=== PATIENT | male | born 1935 | race Caucasian/White ===

== ENCOUNTER → 2018-06-16 | Outpatient (CLI) | payer MEDICARE, OTHER ==
[~2018-06-16] MED LIST: ACHD5005 PO; AGM875T PO; ASP81TEC PO; BARIUM SUSPENSION 2.1% (VANILLA SILQ) 450 ML PO ONE; CATHETER FLUSH 10 ML SYR IV PRN; CIPRO 500 MG PO; GEMF600T PO; GEMF600T3 PO; HYOS0.1216 PO; INSU100V13 IJ; INSU100V6 SQ; IOHEXOL 350 MG/ML 100 ML (OMNIPAQUE 350) VIAL IV ONE; LACT1CAP39 PO; LANTUS SC; LEVSIN 0.125 MG PO; LISI20TA PO; MTF500T PO; NITR100C3 PO; NS 100 ML (IVPB) BAG IV ONE; OXYC1TAB95 PO; PHEN200T27 PO; PHENAZOPYRIDINE 200 MG PO; RECEIVED CONTRAST (Hold Metformin) IV SCH; RIFA300C39 PO; SILO8CAP PO; SIMV20TA3 PO; SMV20T PO; WRF10T PO; ZOLP10TA5 PO
--- NOTE | 2018-06-16 12:33 | Diagnostic Imaging Report ---
PROCEDURE: CT abdomen and pelvis with contrast. TECHNIQUE: Multiple contiguous axial images were obtained through the abdomen and pelvis after administration of intravenous contrast. INDICATION: Prostate carcinoma. COMPARISON: Correlation is made with prior CT from 10/07/2012. FINDINGS: The lung bases demonstrate a 13 mm noncalcified nodule in the posterior right lower lobe, not present on prior CT from 2013. The remainder of the lung bases are clear. No discrete liver mass is identified. The gallbladder is unremarkable. No biliary ductal dilatation is seen. The pancreas and spleen are unremarkable. No adrenal mass is identified. Right kidney again demonstrates a probable cyst extending posteriorly from the right lower pole. This has increased in size since the prior CT, now measuring 2.4 cm transverse compared with 1.5 cm. Left renal atrophy is again noted. There is hyperdensity identified in the left kidney and proximal left ureter suggestive of a staghorn calculus. Contrast is less likely accounting for the hyperdensity. Study is somewhat limited without precontrast imaging. The aorta and iliac vessels are heavily calcified but nonaneurysmal. Small and large bowel loops are normal in caliber. No obstruction is seen. There is diverticulosis of the descending colon and sigmoid but no evidence of acute diverticulitis. Bladder is unremarkable. Prostate is enlarged. No definite abdominal or pelvic lymphadenopathy is seen. Bony structures are nonacute. IMPRESSION: 1. 13 mm right lower lobe pulmonary nodule, new since CT from 2012. Small metastatic nodule cannot be entirely excluded. This is likely too small to percutaneously biopsy. Consideration to performance of the PET scan is recommended. 2. Left renal atrophy and probable left staghorn calculus. 3. Uncomplicated diverticulosis. Dictated by: Dictated on workstation # [id number]
--- NOTE | 2018-06-16 15:56 | Diagnostic Imaging Report ---
INDICATION: Prostate carcinoma. TECHNIQUE: Patient was administered 25.7 mCi technetium 99m MDP intravenously and whole body imaging was performed after a three-hour delay. COMPARISON: No prior studies are available for comparison. FINDINGS: There is normal uptake of activity by the axial and appendicular skeleton. There is uptake by the kidneys with excretion into the urinary bladder. Left kidney is small. Photopenia over the right knee is noted, consistent with right knee arthroplasty. There are mild degenerative changes of the medial and lateral compartment of the left knee. Occasional small foci of uptake in the midthoracic spine and upper lumbar spine are noted which are likely on a degenerative basis. No foci are seen to suggest osseous metastatic disease. IMPRESSION: No scintigraphic evidence of osseous metastatic disease. Dictated by: Dictated on workstation # [id number]
== END ==
LOC: CARD 11:15
PROVIDERS: ATTEND Urology
DX: C61 Malignant neoplasm of prostate (principal); R91.1 Solitary pulmonary nodule
CPT/HCPCS: 74177; 78306

== ENCOUNTER → 2018-08-09 | Outpatient (CLI) | payer MEDICARE, OTHER ==
[~2018-08-09] MED LIST changes: -BARIUM SUSPENSION 2.1% (VANILLA SILQ) 450 ML PO ONE; -CATHETER FLUSH 10 ML SYR IV PRN; -IOHEXOL 350 MG/ML 100 ML (OMNIPAQUE 350) VIAL IV ONE; -NS 100 ML (IVPB) BAG IV ONE; -RECEIVED CONTRAST (Hold Metformin) IV SCH
--- NOTE | 2018-08-09 15:26 | Diagnostic Imaging Report ---
INDICATION: Lung nodule. TECHNIQUE: The serum blood glucose level at the time of injection was 111 mg/dL. The patient was administered 10.8 mCi of F-18 FDG intravenously in the left forearm, and PET imaging was performed from the top of the skull to mid thighs. Noncontrast CT was also performed for attenuation correction and anatomic correlation. COMPARISON: No prior PET studies are available for comparison. Comparison is made with recent conventional CT abdomen and pelvis from 06/16/2018. FINDINGS: There is symmetric activity throughout the brain. Normal physiologic activity within the neck is identified. No abnormal activity within the mediastinum or celestino is identified. No abnormal hypermetabolism is seen in the nodule in the posterior right lower lobe described on recent CT. No other suspicious abnormalities in the chest are identified. There is normal physiologic activity within the GI and tracts within the abdomen and pelvis. Osseous structures are unremarkable. IMPRESSION: Unremarkable PET scan. No hypermetabolism within the small nodule in the posterior right lower lobe is identified. Even so, continued close CT chest followup with repeat study in 3-6 months is recommended to show continued stability. Dictated by: Dictated on workstation # [id number]
== END ==
LOC: RAD 10:41
PROVIDERS: ATTEND Radiology Radiation Oncology
DX: R91.1 Solitary pulmonary nodule (principal)

== ENCOUNTER 2018-08-26 12:42 | Outpatient (CLI) | payer MEDICARE, OTHER ==
[~2018-08-26] VITALS: Ht 182.9 cm; Wt 108.0 kg
[2018-08-26 13:33] VITALS: BP 162/89
[2018-08-26] MEDS ORDERED: WARF-48 PO ×2 (13:48)
[2018-08-26] MEDS ORDERED: ZOLP5TAB7 PO (13:48)
[2018-08-26] MEDS ORDERED: SIMV20TA3 PO (13:48)
[2018-08-26] MEDS ORDERED: INSU100I29 SQ (13:48)
[2018-08-26] MEDS ORDERED: LISI-552 PO (13:48)
== END 2018-08-26 13:20 | disposition home or self-care (01) ==
LOC: PREOP 12:42
PROVIDERS: ATTEND Urology
DX: Z01.810 Encounter for preprocedural cardiovascular examination (principal); Z11.2 Encounter for screening for other bacterial diseases; C61 Malignant neoplasm of prostate
CPT/HCPCS: 87081; 93005

== ENCOUNTER 2018-08-31 06:21 | Day surgery (SDC) | payer MEDICARE, OTHER ==
[2018-08-31] VITALS (14 sets, daily range): BP systolic 141–192; BP diastolic 78–126
[~2018-08-31] VITALS: Ht 182.9 cm; Wt 108.0 kg
[~2018-08-31 06:21] MED LIST changes: +INSU100I29 SQ; +LISI-552 PO; +WARF-48 PO; +ZOLP5TAB7 PO
[2018-08-31] MEDS ORDERED: LACTATED RINGERS 1,000 ML IV PRN (06:22)
[2018-08-31] MEDS ORDERED: cefTRIAXone FOR IV USE 1,000 MG in WATER (STERILE) FOR INJECTION 10 ML IV ONE (06:30)
--- NOTE | 2018-08-31 07:10 | Progress Note-Pre Operative ---
Pre-Operative Progress Note H&P Reviewed The H&P was reviewed, patient examined and no changes noted. Date Seen by Provider: Aug 31, 2018 Time Seen by Provider: 07:10 Date H&P Reviewed: Aug 31, 2018 Time H&P Reviewed: 07:10 Pre-Operative Diagnosis: CA PROSTATE JEREMIAH DE LA ROSA MD Aug 31, 2018 07:10
--- NOTE | 2018-08-31 07:11 | Progress Note-Post Operative ---
Post-Operative Progess Note Surgeon (s)/Rock Crusher (s) Surgeon JEREMIAH DE LA ROSA MD Rock Crusher: [place] Pre-Operative Diagnosis CA PROSTATE Post-Operative Diagnosis SAME Procedure & Operative Findings Date of Procedure 08/31/18 Procedure Performed/Findings INSERTION OF FiUDICAL (GOLD) SEEDS AND SPACE OAR Anesthesia Type GENERAL Estimated Blood Loss Estimated blood loss (mL): NONE Specimens/Packing Specimens Removed NONE Packing: NONE JEREMIAH DE LA ROSA MD Aug 31, 2018 07:11
[2018-08-31] MEDS ORDERED: fentaNYL INJECTION 100 MCG/2 ML AMP ONE (07:12)
[2018-08-31] MEDS ORDERED: MIDAZOLAM 2 MG/2 ML (VERSED) VIAL ONE (07:12)
[2018-08-31] MEDS ORDERED: LIDOCAINE PF 2% 5 ML (XYLOCAINE) VIAL ONE (07:12)
[2018-08-31] MEDS ORDERED: cefTRIAXone 1,000 MG IV (ROCEPHIN) VIAL ONE (07:12)
[2018-08-31] MEDS ORDERED: proPOfol 200 MG/20 ML (DIPRIVAN) VIAL IV ONE (07:12)
[2018-08-31] MEDS ORDERED: ONDANSETRON 4 MG/2 ML (SDV) Z0FRAN ONE (07:12)
[2018-08-31] MEDS ORDERED: WATER (STERILE) FOR INJECTION 10 ML ONE (07:13)
--- NOTE | 2018-08-31 07:13 | Discharge Inst-Urology ---
Discharge Inst-Urology Discharge Medications New, Converted, or Re-newed RX: RX on Chart Patient Instructions/Follow Up Plan Patient to be seen by Dr Jolly prior to discharge. Please make appointment to been seen in office in 2 weeks. In 24 hrs, if no bleedings, may resume Coumadin and ASA Rest for 48 hrs Increase oral fluids for 48 hours and then as needed. Diet as tolerated. If questions or concerns contact your physician Or seek help at emergency department. JEREMIAH DE LA ROSA MD Aug 31, 2018 07:13
[2018-08-31 07:33] LABS: INR 1.1 (0.8-1.4)
[2018-08-31] MEDS ORDERED: SEVOFLURANE (ULTANE) 15 ML INHAL SOLN ONE ×4 (07:58→08:36)
--- NOTE | 2018-08-31 08:45 | NUR ---
DR. HUNTER NOTIFIED FOR A CARDIOLOGY CONSULT. PATIENT HAD A RUN OF V-TACH IN THE OR. PATIENT IS CURRENTLY IN THE RECOVERY ROOM. ORDERS RECEIVED.
[2018-08-31] MEDS ORDERED: MEPERIDINE (DEMEROL) INJ 50 MG/ML IVP ONE (09:00)
[2018-08-31] MEDS ORDERED: ONDANSETRON 4 MG/2 ML (SDV) Z0FRAN IVP PRN (09:00)
[2018-08-31] MEDS ORDERED: morphine INJ 10 MG/ML 1ML (SYR OR VIAL) IVP ONE (09:00)
[2018-08-31 09:19] LABS: HEMOGLOBIN 13.3 G/DL (13.3-17.7); MEAN PLATELET VOLUME 10.3 FL (7.4-10.4); WHITE BLOOD COUNT 8.1 10^3/uL (4.3-11.0)
[2018-08-31 09:32] LABS: ALANINE AMINOTRANSFERASE 11 U/L (0-55); ALBUMIN 3.5 GM/DL (3.2-4.5); ALKALINE PHOSPHATASE 51 U/L (40-136); BILIRUBIN,TOTAL 0.7 MG/DL (0.1-1.0); BUN/CREATININE RATIO 17; CALCIUM 9.4 MG/DL (8.5-10.1); CARBON DIOXIDE 26 MMOL/L (21-32); CHLORIDE 105 MMOL/L (98-107); CREATININE SERUM 1.15 MG/DL (0.60-1.30); GFR ESTIMATED > 60; GLUCOSE 117 MG/DL (70-105); MAGNESIUM 1.7 MG/DL (1.8-2.4); POTASSIUM 4.1 MMOL/L (3.6-5.0); SODIUM 138 MMOL/L (135-145); TOTAL PROTEIN 5.6 GM/DL (6.4-8.2)
--- NOTE | 2018-08-31 12:51 | Cardiology History & Physical ---
HPI-Cardiology Cardiology H&P Date of Admission 08-31-18 Primary Care Physician Dario Soria DO Attending Physician Wolf Jolly MD Consulting Physician HPI Mr. Escobedo is an 83 year old male who we have been called to see d/t a short run of WCT during implant of radiation seeds d/t prostate cancer. He is drowsy at the time of this examination. He reports Dr. Rose is his primary master sheet clerk. He denies any c/o CP, palpitations, syncope, near syncope or LE swelling. He states he has chronic a-fib and is on warfarin. Review of Systems-Cardiology Review of Systems Constitutional: No chills, No fever Eyes: No vision change Ears/Nose/Throat: No epistaxis, No recent hearing loss Respiratory: As described under HPI Cardiovascular: As described under HPI Gastrointestinal: No diarrhea, No nausea, No vomiting Genitourinary: No dysuria, No hematuria Musculoskeletal: no symptoms reported Skin: No rash, No ulcerations Psychiatric/Neurological: No seizure, No focal weakness, No syncope Hematologic: No bleeding abnormalities PHI-Osimpy-Yratvh Hx Patient Social History Alcohol Use: Denies Use Recreational Drug Use: No Smoking Status: Former Smoker 2nd Hand Smoke Exposure: No Recent Foreign Travel: No Recent Infectious Disease Expo: No Immunizations Up To Date Date of Pneumonia Vaccine: Apr 13, 2008 Date of Influenza Vaccine: Mar 28, 2018 Past Medical History PMH As described under Assessment. Allergies and Home Medications Allergies Coded Allergies: Sulfa (Sulfonamide Antibiotics) (Unverified Allergy, Unknown, HIVES, ) Thiazides (Verified Allergy, Unknown, HIVES, 08/26/18) ciprofloxacin (Verified Allergy, Unknown, HIVES, 08/26/18) doxycycline (Verified Allergy, Unknown, HIVES, 08/26/18) levofloxacin (Verified Allergy, Unknown, HIVES, 08/26/18) Home Medications Insulin Detemir 100 Unit/1 Ml Insuln.pen, 5 UNIT SQ HS, (Reported) Lisinopril 20 Mg Tablet, 20 MG PO DAILY, (Reported) Simvastatin 20 Mg Tablet, 20 MG PO HS, (Reported) Warfarin Sodium 5 Mg Tablet, 5 MG PO SuTuThSa, (Reported) Warfarin Sodium 5 Mg Tablet, 7.5 MG PO MoWeFr, (Reported) take 1 1/2 of 5mg tab Zolpidem Tartrate 5 Mg Tablet, 5 MG PO HS, (Reported) Patient Home Medication List Home Medication List Reviewed: Yes Physical Exam-Cardiology Physical Exam Vital Signs/I&O 08/31/18 08/31/18 09/01/18 09/01/18 22:00 23:00 00:00 00:00 Temp 97.9 Pulse 70 59 Resp 19 18 B/P (MAP) 172/102 (125) 152/78 (102) Pulse Ox 94 95 O2 Delivery Room Air Room Air Room Air 09/01/18 09/01/18 09/01/18 09/01/18 00:00 01:00 01:00 02:00 Pulse 70 55 55 57 Resp 15 26 20 B/P (MAP) 136/60 (85) 116/50 (72) 128/66 (86) Pulse Ox 91 91 89 O2 Delivery Room Air Room Air Room Air 09/01/18 09/01/18 09/01/18 09/01/18 03:00 04:00 04:56 07:00 Pulse 69 69 68 59 Resp 11 14 21 20 B/P (MAP) 110/61 (77) 131/58 (82) Pulse Ox 91 86 94 99 O2 Delivery Room Air Room Air Nasal Cannula Nasal Cannula O2 Flow Rate 2.00 2.00 09/01/18 09/01/18 09/01/18 09/01/18 07:09 08:00 08:00 09:00 Pulse 59 103 70 Resp 24 19 B/P (MAP) 165/101 (122) 166/101 (122) Pulse Ox 99 96 94 O2 Delivery Nasal Cannula Room Air Nasal Cannula O2 Flow Rate 2.00 2.00 09/01/18 09:00 O2 Delivery Room Air 08/31/18 23:59 Intake Total 550 ml Output Total 925 ml Balance -375 ml Capillary Refill : Constitutional: AAO x 3, well-developed, well-nourished HEENT: PERRL, hearing is well preserved, oral hygience is good Neck: No carotid bruit; carotid pulses are 2 + bilaterally Respiratory: No accessory muscle use, No respiratory distress; chest expansion is symmetric, chest is bilaterally symmetric, lungs clear to auscultation Cardiovascular: irregularly irregular; No JVD; S1 and S2 Gastrointestinal: audible bowel sounds Rectal: deferred Extremities: no lower extremity edema bilateral Neurologic/Psychiatric: grossly intact, power is 5/5 both on sides Skin: No rash, No ulcerations Data Review Labs Laboratory Tests 08/31/18 14:45: White Blood Count 10.1, Red Blood Count 4.69, Hemoglobin 14.5, Hematocrit 44, Mean Corpuscular Volume 94, Mean Corpuscular Hemoglobin 31, Mean Corpuscular Hemoglobin Concent 33, Red Cell Distribution Width 14.2, Platelet Count 132, Mean Platelet Volume 10.4, Prothrombin Time 13.7, INR Comment 1.1, Sodium Level 138, Potassium Level 4.2, Chloride Level 104, Carbon Dioxide Level 26, Anion Gap 8, Blood Urea Nitrogen 18, Creatinine 1.13, Estimat Glomerular Filtration Rate > 60, BUN/Creatinine Ratio 16, Glucose Level 100, Calcium Level 9.6, Magnesium Level 1.7L, Thyroid Stimulating Hormone (TSH) 0.84 08/31/18 18:51: Glucometer 190H 08/31/18 21:14: Glucometer 170H 09/01/18 03:10: White Blood Count 9.7, Red Blood Count 4.13L, Hemoglobin 13.1L, Hematocrit 39L, Mean Corpuscular Volume 94, Mean Corpuscular Hemoglobin 32, Mean Corpuscular Hemoglobin Concent 34, Red Cell Distribution Width 14.6H, Platelet Count 170, Mean Platelet Volume 10.1, Prothrombin Time 14.2, INR Comment 1.1, Sodium Level 139, Potassium Level 4.2, Chloride Level 106, Carbon Dioxide Level 23, Anion Gap 10, Blood Urea Nitrogen 20H, Creatinine 1.21, Estimat Glomerular Filtration Rate 57, BUN/Creatinine Ratio 17, Glucose Level 104, Calcium Level 8.9, Magnesium Level 1.7L, Neutrophils (%) (Auto) 62, Lymphocytes (%) (Auto) 23, Monocytes (%) (Auto) 10, Eosinophils (%) (Auto) 4, Basophils (%) (Auto) 1, Neutrophils # (Auto) 6.0, Lymphocytes # (Auto) 2.3, Monocytes # (Auto) 1.0, Eosinophils # (Auto) 0.4H, Basophils # (Auto) 0.1, Phosphorus Level 3.3 A/P-Cardiology Assessment/Admission Diagnosis Episode of WCT (6 beats) during radiation seed implant for prostate cancer on 08-31-18 H/O chronic a-fib OAC with warfarin Prostate cancer Admission Status: Observation Discussion and Recomendations Admit with tele Continue home medications including warfarin for stroke prophylaxis Echocardiogram to eval LVEF and structure Monitor lab Not suitable for BB d/t somewhat low HR - albeit asymptomatic Further recs will be based on his hospital course Consult medical services ROBINA LORD Aug 31, 2018 12:51
[2018-08-31 14:57] LABS: HEMOGLOBIN 14.5 G/DL (13.3-17.7); MEAN PLATELET VOLUME 10.4 FL (7.4-10.4); RED CELL DISTRIBUTION WIDTH 14.2 % (10.0-14.5); WHITE BLOOD COUNT 10.1 10^3/uL (4.3-11.0)
[2018-08-31 15:09] LABS: INR 1.1 (0.8-1.4); PROTHROMBIN TIME PATIENT 13.7 SEC (12.2-14.7)
[2018-08-31 15:15] LABS: BUN/CREATININE RATIO 16; CALCIUM 9.6 MG/DL (8.5-10.1); CARBON DIOXIDE 26 MMOL/L (21-32); CHLORIDE 104 MMOL/L (98-107); CREATININE SERUM 1.13 MG/DL (0.60-1.30); GFR ESTIMATED > 60; GLUCOSE 100 MG/DL (70-105); MAGNESIUM 1.7 MG/DL (1.8-2.4); POTASSIUM 4.2 MMOL/L (3.6-5.0); SODIUM 138 MMOL/L (135-145)
--- NOTE | 2018-08-31 19:06 | Consultation-Cardiology ---
HPI-Cardiology Cardiology Consultation: Date of Consultation 08/31/18 Time Seen by a Provider: 13:40 Date of Admission Attending Physician Justin Bower MD Admitting Physician Dario Soria DO Consulting Physician NAE HUNTER MD, MA, FACP, FACC, [facility] HPI: Chief Complaint: CC: Wide-complex tachy during urologic procedure today Mr. Escobedo is an 83 year old male who we have been called to see d/t a short run of WCT during implant of radiation seeds d/t prostate cancer. He is drowsy at the time of this examination. He reports Dr. Rose is his primary informatica developer. He denies any c/o CP, palpitations, syncope, near syncope or LE swelling. He states he has chronic a-fib and is on warfarin. Review of Systems-Cardiology Review of Systems Constitutional: No chills, No fever Eyes: No vision change Ears/Nose/Throat: No epistaxis, No recent hearing loss Respiratory: As described under HPI Cardiovascular: As described under HPI Gastrointestinal: No diarrhea, No nausea, No vomiting Genitourinary: No dysuria, No hematuria Musculoskeletal: no symptoms reported Skin: No rash, No ulcerations Psychiatric/Neurological: No seizure, No focal weakness, No syncope Hematologic: No bleeding abnormalities BYW-Wgoiqe-Gvnouu Hx Patient Social History Alcohol Use: Denies Use Recreational Drug Use: No Smoking Status: Former Smoker 2nd Hand Smoke Exposure: No Recent Foreign Travel: No Recent Infectious Disease Expo: No Immunizations Up To Date Date of Pneumonia Vaccine: Apr 13, 2008 Date of Influenza Vaccine: Mar 28, 2018 Past Medical History PMH As described under Assessment. Allergies and Home Medications Allergies Coded Allergies: Sulfa (Sulfonamide Antibiotics) (Unverified Allergy, Unknown, HIVES, ) Thiazides (Verified Allergy, Unknown, HIVES, 08/26/18) ciprofloxacin (Verified Allergy, Unknown, HIVES, 08/26/18) doxycycline (Verified Allergy, Unknown, HIVES, 08/26/18) levofloxacin (Verified Allergy, Unknown, HIVES, 08/26/18) Home Medications Insulin Detemir 100 Unit/1 Ml Insuln.pen, 5 UNIT SQ HS, (Reported) Lisinopril 20 Mg Tablet, 20 MG PO DAILY, (Reported) Simvastatin 20 Mg Tablet, 20 MG PO HS, (Reported) Warfarin Sodium 5 Mg Tablet, 5 MG PO SuTuThSa, (Reported) Warfarin Sodium 5 Mg Tablet, 7.5 MG PO MoWeFr, (Reported) take 1 1/2 of 5mg tab Zolpidem Tartrate 5 Mg Tablet, 5 MG PO HS, (Reported) Patient Home Medication List Home Medication List Reviewed: Yes Physical Exam-Cardiology Physical Exam Vital Signs/I&O 08/31/18 08/31/18 08/31/18 08/31/18 08:13 11:23 12:00 12:59 Temp 98.5 97.5 Pulse 56 52 56 52 Resp 12 18 B/P (MAP) 162/83 162/91 (114) Pulse Ox 96 O2 Delivery Room Air 08/31/18 08/31/18 08/31/18 08/31/18 13:00 14:00 15:00 16:00 Pulse 44 56 66 58 Resp 12 8 26 26 B/P (MAP) 151/86 (107) 163/91 (115) 141/126 (131) 143/88 (106) Pulse Ox 100 98 99 97 O2 Delivery Room Air Room Air Room Air Room Air 08/31/18 08/31/18 17:00 18:00 Pulse 49 67 Resp 22 11 B/P (MAP) 171/82 (111) 174/83 (113) Pulse Ox 99 96 O2 Delivery Room Air Room Air Capillary Refill : Constitutional: AAO x 3, well-developed, well-nourished HEENT: PERRL, hearing is well preserved, oral hygience is good Neck: No carotid bruit; carotid pulses are 2 + bilaterally Respiratory: No accessory muscle use, No respiratory distress; chest expansion is symmetric, chest is bilaterally symmetric, lungs clear to auscultation Cardiovascular: irregularly irregular; No JVD; S1 and S2 Gastrointestinal: audible bowel sounds Rectal: deferred Extremities: no lower extremity edema bilateral Neurologic/Psychiatric: grossly intact, power is 5/5 both on sides Skin: No rash, No ulcerations Data Review Labs Laboratory Tests 08/31/18 06:51: Glucometer 138H 08/31/18 07:00: Prothrombin Time 14.0, INR Comment 1.1 08/31/18 09:05: White Blood Count 8.1, Red Blood Count 4.31L, Hemoglobin 13.3, Hematocrit 40, Mean Corpuscular Volume 94, Mean Corpuscular Hemoglobin 31, Mean Corpuscular Hemoglobin Concent 33, Red Cell Distribution Width 14.0, Platelet Count 156, Mean Platelet Volume 10.3, Sodium Level 138, Potassium Level 4.1, Chloride Level 105, Carbon Dioxide Level 26, Anion Gap 7, Blood Urea Nitrogen 19H, Creatinine 1.15, Estimat Glomerular Filtration Rate > 60, BUN/Creatinine Ratio 17, Glucose Level 117H, Calcium Level 9.4, Corrected Calcium 9.8, Magnesium Level 1.7L, Total Bilirubin 0.7, Aspartate Amino Transf (AST/SGOT) 20, Alanine Aminotransferase (ALT/SGPT) 11, Alkaline Phosphatase 51, Troponin I < 0.028, Total Protein 5.6L, Albumin 3.5, Thyroid Stimulating Hormone (TSH) 1.20 08/31/18 14:45: Prothrombin Time 13.7, INR Comment 1.1, White Blood Count 10.1, Red Blood Count 4.69, Hemoglobin 14.5, Hematocrit 44, Mean Corpuscular Volume 94, Mean Corpuscular Hemoglobin 31, Mean Corpuscular Hemoglobin Concent 33, Red Cell Distribution Width 14.2, Platelet Count 132, Mean Platelet Volume 10.4, Sodium Level 138, Potassium Level 4.2, Chloride Level 104, Carbon Dioxide Level 26, Anion Gap 8, Blood Urea Nitrogen 18, Creatinine 1.13, Estimat Glomerular Filtration Rate > 60, BUN/Creatinine Ratio 16, Glucose Level 100, Calcium Level 9.6, Magnesium Level 1.7L, Thyroid Stimulating Hormone (TSH) 0.84 08/31/18 18:51: Glucometer 190H A/P-Cardiology Assessment/Admission Diagnosis Episode of WCT (6 beats) during radiation seed implant for prostate cancer on 08-31-18 H/O chronic a-fib OAC with warfarin Prostate cancer Discussion and Recomendations Admit with tele Continue home medications including warfarin for stroke prophylaxis Echocardiogram to eval LVEF and structure MPI to eval for cor ischemia Monitor lab Not suitable for BB d/t somewhat low HR - albeit asymptomatic Further recs will be based on his hospital course Consult medical services NAE HUNTER MD FACP FAC CCDS Aug 31, 2018 19:06
[2018-08-31] MEDS ORDERED: ENOXAPARIN 40 MG/0.4 ML (LOVENOX) SYR SC SCH (19:15)
[2018-08-31] MEDS ORDERED: ASPIRIN 81 MG CHEW (CHILDREN'S ASA) PO ONE (19:15)
[2018-08-31] MEDS ORDERED: inSUlin DETERMIR 1 UNIT/0.01 ML (LEVEMIR) CHARGE PER UNIT SQ SCH (21:00)
[2018-08-31] MEDS ORDERED: ZOLPIDEM 5 MG (AMBIEN) TAB PO SCH (21:00)
--- NOTE | 2018-08-31 21:04 | NUR ---
NOTIFIED DR DE LA ROSA OF MED ORDER FOR LOVENOX 40MG SQ. OKAYED BY DR DE LA ROSA TO GIVE LOVENOX AND RESTART HOME MEDS.
[2018-08-31] MEDS ORDERED: ACETAMINOPHEN 325 MG TABLET ONE (22:22)
[2018-08-31] MEDS ORDERED: ENOXAPARIN 40 MG/0.4 ML (LOVENOX) SYR ONE (22:22)
[2018-08-31] MEDS ORDERED: ACETAMINOPHEN 325 MG TABLET PO PRN (22:30)
--- NOTE | 2018-08-31 22:37 | NUR ---
PT STATED THAT HOME DOSE OF LEVEMIR INSULIN IS 25 UNITS SQ, NOT 5 UNITS PER MED REC.
[2018-08-31] MEDS ORDERED: inSUlin DETERMIR 1 UNIT/0.01 ML (LEVEMIR) CHARGE PER UNIT SQ ONE (22:52)
[2018-09-01] VITALS (9 sets, daily range): BP systolic 110–178; BP diastolic 50–110
[2018-09-01 04:02] LABS: BASOPHILS # (AUTO) 0.1 10^3/uL (0.0-0.1); BASOPHILS % (AUTO) 1 % (0-10); EOSINOPHILS # (AUTO) 0.4 10^3/uL (0.0-0.3); EOSINOPHILS % (AUTO) 4 % (0-10); HEMATOCRIT 39 % (40-54); HEMOGLOBIN 13.1 G/DL (13.3-17.7); LYMPHOCYTES # (AUTO) 2.3 X 10^3 (1.0-4.0); LYMPHOCYTES % (AUTO) 23 % (12-44); MEAN CORPUSCULAR HEMOGLOBIN 32 PG (25-34); MEAN CORPUSCULAR HGB CONC 34 G/DL (32-36); MEAN CORPUSCULAR VOLUME 94 FL (80-99); MEAN PLATELET VOLUME 10.1 FL (7.4-10.4); MONOCYTES % (AUTO) 10 % (0-12); NEUTROPHILS % (AUTO) 62 % (42-75); PLATELET COUNT 170 10^3/uL (130-400); RED CELL DISTRIBUTION WIDTH 14.6 % (10.0-14.5); WHITE BLOOD COUNT 9.7 10^3/uL (4.3-11.0)
[2018-09-01 04:13] LABS: INR 1.1 (0.8-1.4); PROTHROMBIN TIME PATIENT 14.2 SEC (12.2-14.7)
[2018-09-01 04:20] LABS: CALCIUM 8.9 MG/DL (8.5-10.1); CREATININE SERUM 1.21 MG/DL (0.60-1.30); MAGNESIUM 1.7 MG/DL (1.8-2.4); PHOSPHORUS 3.3 MG/DL (2.3-4.7); POTASSIUM 4.2 MMOL/L (3.6-5.0)
--- NOTE | 2018-09-01 07:48 | Anesthesia-General Post-Op ---
General Patient Condition Mental Status/LOC: Same as Preop Cardiovascular: Satisfactory Nausea/Vomiting: Absent Respiratory: Satisfactory Pain: Controlled Complications: Absent Post Op Complications Complications None Follow Up Care/Instructions Patient Instructions None needed. Anesthesia/Patient Condition Patient Condition Patient is doing well, no complaints, stable vital signs, no apparent adverse anesthesia problems. No complications reported per nursing. PERRY CONWAY CRNA Sep 01, 2018 07:48
[2018-09-01] MEDS ORDERED: ASPIRIN 81 MG CHEW (CHILDREN'S ASA) PO SCH (09:00)
[2018-09-01] MEDS ORDERED: lisINopril 20 MG (PRINIVIL) TABLET PO NR (09:45)
--- NOTE | 2018-09-01 09:51 | Progress Note-Cardiology ---
Cardiology SOAP Progress Note Subjective: Sitting up in bed. Wants to go home this morning. He does not want to have any testing done. He denies any c/o CP, palpitations, syncope or near syncope. He wants to f/u with Dr. Rose his primary director of financial planning. Objective: I&O/Vital Signs 09/01/18 09/01/18 09/01/18 09/01/18 07:00 07:09 08:00 08:00 Pulse 59 59 103 Resp 20 24 B/P (MAP) 165/101 (122) Pulse Ox 99 99 96 O2 Delivery Nasal Cannula Nasal Cannula Room Air O2 Flow Rate 2.00 2.00 09/01/18 09/01/18 09/01/18 09/01/18 09:00 09:00 10:00 11:00 Pulse 70 76 72 Resp 19 25 26 B/P (MAP) 166/101 (122) 178/110 (132) 137/88 (104) Pulse Ox 94 92 93 O2 Delivery Nasal Cannula Room Air Nasal Cannula Room Air O2 Flow Rate 2.00 2.00 09/01/18 00:00 Intake Total 550 ml Output Total 925 ml Balance -375 ml Weight (Pounds): 238 Weight (Ounces): 0.0 Weight (Calculated Kilograms): [id number] Constitutional: AAO x 3, well-developed, well-nourished Respiratory: No accessory muscle use, No respiratory distress; chest expansion is symmetric, chest is bilaterally symmetric, lungs clear to auscultation Cardiovascular: irregularly irregular; No JVD; S1 and S2 Gastrointestional: audible bowel sounds Extremities: no lower extremity edema bilateral Neurologic/Psychiatric: grossly intact, power is 5/5 both on sides Skin: No rash, No ulcerations Results/Procedures: Labs Laboratory Tests 08/31/18 18:51: Glucometer 190H 08/31/18 21:14: Glucometer 170H 09/01/18 03:10: White Blood Count 9.7, Red Blood Count 4.13L, Hemoglobin 13.1L, Hematocrit 39L, Mean Corpuscular Volume 94, Mean Corpuscular Hemoglobin 32, Mean Corpuscular Hemoglobin Concent 34, Red Cell Distribution Width 14.6H, Platelet Count 170, Mean Platelet Volume 10.1, Neutrophils (%) (Auto) 62, Lymphocytes (%) (Auto) 23 , Monocytes (%) (Auto) 10, Eosinophils (%) (Auto) 4, Basophils (%) (Auto) 1, Neutrophils # (Auto) 6.0, Lymphocytes # (Auto) 2.3, Monocytes # (Auto) 1.0, Eosinophils # (Auto) 0.4H, Basophils # (Auto) 0.1, Prothrombin Time 14.2, INR Comment 1.1, Sodium Level 139, Potassium Level 4.2, Chloride Level 106, Carbon Dioxide Level 23, Anion Gap 10, Blood Urea Nitrogen 20H, Creatinine 1.21, Estimat Glomerular Filtration Rate 57, BUN/Creatinine Ratio 17, Glucose Level 104, Calcium Level 8.9, Phosphorus Level 3.3, Magnesium Level 1.7L A/P: Assessment: Episode of WCT (6 beats) during radiation seed implant for prostate cancer on 08-31-18 H/O chronic a-fib Echocardiogram of 08-31-18 showed LVEF 50-55%. Grade I diastolic dysfunction. Mild TR. PASP 25 mmHg. OAC with warfarin Not suitable for beta-chente because of bradycardia at baseline Prostate cancer Plan: Continue home medication regimen He is not reporting any symptoms No further episodes of WCT He does not wish to have any testing done He wants to go home and f/u with Dr. Rose He understands the implications of decision. We have discussed at length. D/C home with out pt f/u with Dr. Rose Physician Assessment Physician Assessment Denies cp or palp or syncope. Wishes to go home Lungs: clear Cor: reg Ext: no c/c/e A&R * As documented in our note above that I updated (italics) and as noted below * He refuses to stay in the hosp for any further w/u (MPI was planned today) * States will f/u with Dr Rose, his director of financial planning, [place] * We have advised return to ER for any symptoms ROBINA LORD RECORD LIBRARIAN Sep 01, 2018 09:51 NAE HUNTER MD FACP FAC CCDS Sep 01, 2018 17:42
[2018-09-01] MEDS ORDERED: warFARin 5 MG (COUMADIN) TAB PO SCH (18:00)
[2018-09-01] MEDS ORDERED: ACETAMINOPHEN 325 MG TABLET PO SCH (21:00)
[2018-09-01] MEDS ORDERED: SIMvastatin 20 MG (ZOCOR) TAB PO SCH (21:00)
[2018-09-01] MEDS ORDERED: inSUlin DETERMIR 1 UNIT/0.01 ML (LEVEMIR) CHARGE PER UNIT SQ SCH (21:00)
[2018-09-02] MEDS ORDERED: lisINopril 20 MG (PRINIVIL) TABLET PO SCH (09:00)
[2018-09-02] MEDS ORDERED: warFARin 7.5 MG (COUMADIN) TAB PO SCH (18:00)
== END 2018-09-01 11:42 | disposition home or self-care (01) ==
LOC: SDC 06:21 → ICU 11:23 → SDC 09-01 11:42
PROVIDERS: ATTEND Urology
DX: C61 Malignant neoplasm of prostate (principal); I48.2 Chronic atrial fibrillation; I10 Essential (primary) hypertension; E78.5 Hyperlipidemia, unspecified; E11.9 Type 2 diabetes mellitus without complications; I25.10 Atherosclerotic heart disease of native coronary artery without angina pectoris; K21.9 Gastro-esophageal reflux disease without esophagitis; Z95.1 Presence of aortocoronary bypass graft; Z96.652 Presence of left artificial knee joint; Z88.2 Allergy status to sulfonamides; Z88.1 Allergy status to other antibiotic agents; Z79.01 Long term (current) use of anticoagulants; Z79.899 Other long term (current) drug therapy; Z86.73 Personal history of transient ischemic attack (TIA), and cerebral infarction without residual deficits
CPT/HCPCS: 36415; 80048; 80053; 82962; 83735; 84100; 84443; 84484; 85025; 85027; 85610; 93005; 93306

== ENCOUNTER → 2018-09-14 | Outpatient (CLI) | payer MEDICARE, OTHER ==
--- NOTE | 2018-09-14 17:02 | Diagnostic Imaging Report ---
PROCEDURE: MRI pelvis without contrast. TECHNIQUE: Multiplanar, multisequence MRI of the pelvis was performed without contrast. INDICATION: Prostate cancer. Planning MRI for radiation seed placement. COMPARISON: PET/CT from 08/09/2018. FINDINGS: The prostate is mildly enlarged measuring 5.3 x 4.0 x 4.7 cm (transverse x AP x craniocaudal). The central gland is hypertrophied and accounts for the prostate enlargement. In the inferior left zone of the central gland, there is a 1.5 x 1.4 cm nodule. No macroscopic invasion of the urinary bladder, seminal vesicles, or pelvic sidewall. No regional sclerotic lesions to indicate skeletal metastases. No lymphadenopathy within the pelvis. No free pelvic fluid. No hip effusion. SI joints are normal. IMPRESSION: 1. Prostatomegaly with asymmetric nodularity in the central zone of the left apex. Dictated by: Dictated on workstation # [id number]
== END ==
LOC: RAD 12:08
PROVIDERS: ATTEND Nurse Practitioner Family
DX: C61 Malignant neoplasm of prostate (principal)
CPT/HCPCS: 72195

== ENCOUNTER → 2018-11-01 | Outpatient (RCR) | payer MEDICARE, OTHER | END | disposition home or self-care (01) | LOC: ONC 08-03 15:10 | PROVIDERS: ATTEND Radiology Radiation Oncology | DX: Z51.0 Encounter for antineoplastic radiation therapy (principal); C61 Malignant neoplasm of prostate; I48.2 Chronic atrial fibrillation; I10 Essential (primary) hypertension; E78.5 Hyperlipidemia, unspecified; E11.9 Type 2 diabetes mellitus without complications; I25.10 Atherosclerotic heart disease of native coronary artery without angina pectoris; K21.9 Gastro-esophageal reflux disease without esophagitis; Z86.73 Personal history of transient ischemic attack (TIA), and cerebral infarction without residual deficits; Z95.1 Presence of aortocoronary bypass graft; Z96.652 Presence of left artificial knee joint; Z79.01 Long term (current) use of anticoagulants; Z79.899 Other long term (current) drug therapy | CPT/HCPCS: 72195; 77300; 77301; 77334; 77336; 77338; 77385; 99204 ==

== ENCOUNTER 2018-11-28 08:41 | Outpatient (RCR) | payer MEDICARE, OTHER | END 2019-01-31 | disposition home or self-care (01) | LOC: ONC 08:41 | PROVIDERS: ATTEND Radiology Radiation Oncology | DX: Z51.0 Encounter for antineoplastic radiation therapy (principal); C61 Malignant neoplasm of prostate; I48.2 Chronic atrial fibrillation; I10 Essential (primary) hypertension; E78.5 Hyperlipidemia, unspecified; E11.9 Type 2 diabetes mellitus without complications; I25.10 Atherosclerotic heart disease of native coronary artery without angina pectoris; K21.9 Gastro-esophageal reflux disease without esophagitis; Z86.73 Personal history of transient ischemic attack (TIA), and cerebral infarction without residual deficits; Z95.1 Presence of aortocoronary bypass graft; Z96.652 Presence of left artificial knee joint; Z79.01 Long term (current) use of anticoagulants; Z79.899 Other long term (current) drug therapy | CPT/HCPCS: 77336; 77385 ==

== ENCOUNTER → 2018-12-02 | Outpatient (CLI) | payer MEDICARE, OTHER ==
--- NOTE | 2018-12-02 08:41 | Diagnostic Imaging Report ---
PROCEDURE: CT urinary tract, rule out kidney stone. TECHNIQUE: Multiple contiguous axial images were obtained through the abdomen and pelvis without the use of intravenous contrast. Auto Exposure Controls were utilized during the CT exam to meet ALARA standards for radiation dose reduction. INDICATION: Right flank pain. History of kidney stones. COMPARISON: CT dated 06/16/[address] PET dated 08/09/2018. FINDINGS: Included portions of the lung bases show partially visualized 1.4 x 1.3 cm nodule within subpleural margins of the right lower lobe (image 2, series 2). CT abdomen: There is colonic diverticulosis, but no CT evidence of acute diverticulitis. Normal appendix is identified. Small bowel loops are nondistended. Evaluation of kidneys demonstrates significant asymmetric atrophy of the left kidney. Staghorn calculus is also identified on the left. Multiple hypodense left renal cysts are also noted. Appearance is consistent with findings seen on 06/16/2018. Evaluation of the right kidney demonstrates punctate nonobstructive calculus within the superior pole. Multiple hypodense right renal cysts are also noted. No ureteral calculi are identified on the right. Additionally, there is no hydroureteronephrosis or other evidence of obstruction. The adrenal glands, spleen, pancreas, and liver have an unremarkable noncontrast CT appearance. There is no loculated fluid collection, free fluid, nor free air within the abdomen. No abnormal mesenteric or retroperitoneal adenopathy is seen. There is diffuse calcified aortic and arterial atherosclerosis. Focal ectasia of the infrarenal abdominal aorta measures 2.8 x 2.9 cm (image 63, series 2). Osseous structures show no acute abnormalities. CT pelvis: Urinary bladder is unopacified. No calculi are seen within urinary bladder. There is no loculated fluid collection, free fluid, nor free air within the pelvis. No abnormal adenopathy is seen. Bony structures show no acute abnormalities. IMPRESSION: 1. Punctate nonobstructive right renal calculus. 2. Asymmetric advanced atrophy of the left kidney with large staghorn calculus on the left. 3. Bilateral hypodense renal cysts. 4. Nodular density within the included portions of the right lower lobe. Nodular density is only partially visualized on today's exam, but has been previously assessed on CT PET dated 08/09/2018. Continued followup CT chest is recommended to ensure stability. 5. Colonic diverticulosis, but no CT evidence of acute diverticulitis. Dictated by: Dictated on workstation # [id number]
--- NOTE | 2018-12-02 08:49 | Diagnostic Imaging Report ---
Indication: Right flank pain. Time of exam: 8:08 AM Correlation is made with prior exam from 04/13/2012. Staghorn calculus in left kidney is noted measuring 4.1 x 4.4 cm. No right-sided renal calculi are seen. Bowel gas pattern is unremarkable. Impression: Left-sided staghorn calculus. No other significant abnormality is seen. Dictated by: Dictated on workstation # [id number]
== END ==
LOC: RAD 08:01
PROVIDERS: ATTEND Urology
DX: N20.0 Calculus of kidney (principal); N28.1 Cyst of kidney, acquired; K57.30 Diverticulosis of large intestine without perforation or abscess without bleeding; J98.4 Other disorders of lung
CPT/HCPCS: 74018; 74176

== ENCOUNTER → 2019-05-11 | Outpatient (CLI) | payer MEDICARE, OTHER ==
[2019-05-11 15:35] LABS: MEAN PLATELET VOLUME 10.1 FL (7.4-10.4); RED CELL DISTRIBUTION WIDTH 13.9 % (10.0-14.5); WHITE BLOOD COUNT 7.4 10^3/uL (4.3-11.0)
[2019-05-11 15:42] LABS: BILIRUBIN,URINE NEGATIVE (NEGATIVE); CLARITY,URINE CLEAR; COLOR,URINE YELLOW; GLUCOSE, URINE (UA) NEGATIVE (NEGATIVE); KETONES,URINE NEGATIVE (NEGATIVE); LEUKOCYTE ESTERASE ,URINE TRACE (NEGATIVE); NITRITE,URINE NEGATIVE (NEGATIVE); PROTEIN,URINE 3+ (NEGATIVE)
[2019-05-11 15:57] LABS: ALBUMIN 3.8 GM/DL (3.2-4.5); BILIRUBIN,TOTAL 0.4 MG/DL (0.1-1.0); CALCIUM 9.6 MG/DL (8.5-10.1); CREATININE SERUM 1.42 MG/DL (0.60-1.30); POTASSIUM 4.2 MMOL/L (3.6-5.0)
[2019-05-11 15:59] LABS: BACTERIA,URINE TRACE /HPF; RBC,URINE 50-100 /HPF; SQUAMOUS EPITHELIAL CELL,UR RARE /HPF
== END ==
LOC: LAB 15:06
PROVIDERS: ATTEND Urology
DX: C61 Malignant neoplasm of prostate (principal)
CPT/HCPCS: 36415; 80053; 81000; 84153; 84403; 85027; 87077; 87088; 87186

== ENCOUNTER → 2020-12-05 | Outpatient (CLI) | payer MEDICARE ==
[~2020-12-05] MED LIST changes: -LISI-552 PO; +LISI20TA26 PO; +SIMV20TA26 PO
== END ==
LOC: RAD 15:04
PROVIDERS: ATTEND Urology
DX: Z53.9 Procedure and treatment not carried out, unspecified reason (principal)

== ENCOUNTER → 2020-12-05 | Outpatient (CLI) | payer MEDICARE ==
[2020-12-05 15:29] LABS: HEMATOCRIT 42 % (40-54); HEMOGLOBIN 14.3 g/dL (13.3-17.7); MEAN CORPUSCULAR HEMOGLOBIN 32 pg (25-34); MEAN CORPUSCULAR HGB CONC 35 g/dL (32-36); MEAN CORPUSCULAR VOLUME 91 fL (80-99); MEAN PLATELET VOLUME 9.8 fL (9.0-12.2); PLATELET COUNT 196 10^3/uL (130-400); WHITE BLOOD COUNT 9.9 10^3/uL (4.3-11.0)
[2020-12-05 15:41] LABS: BILIRUBIN,URINE NEGATIVE (NEGATIVE); CLARITY,URINE CLEAR; COLOR,URINE YELLOW; GLUCOSE, URINE (UA) NEGATIVE (NEGATIVE); KETONES,URINE NEGATIVE (NEGATIVE); LEUKOCYTE ESTERASE ,URINE 1+ (NEGATIVE); NITRITE,URINE NEGATIVE (NEGATIVE); PROTEIN,URINE 1+ (NEGATIVE)
[2020-12-05 15:56] LABS: BACTERIA,URINE TRACE /HPF; RBC,URINE 0-2 /HPF
[2020-12-05 15:57] LABS: ALBUMIN 3.9 GM/DL (3.2-4.5); BILIRUBIN,TOTAL 0.6 MG/DL (0.1-1.0); CALCIUM 9.7 MG/DL (8.5-10.1); CREATININE SERUM 1.38 MG/DL (0.60-1.30)
[2020-12-05 15:57] LABS: AMORPHOUS SEDIMENT,UR FEW AMOR URATES /LPF
--- NOTE | 2020-12-05 18:35 | Diagnostic Imaging Report ---
INDICATION: Left flank pain, renal stones. COMPARISON: 12/02/2018. TECHNIQUE: Two radiographs of the abdomen dated December 05, 2020. FINDINGS: Median sternotomy. The minimally visualized lung bases are grossly clear. Irregular staghorn calculus overlying the left renal shadow is again identified. The left renal shadow appears small related to atrophy. 2 mm calcification is noted overlying the superior pole of the right renal shadow. 8 mm calcification is overlying the left aspect of the sacrum, which is new since the prior examination in 2019. Additional phleboliths are noted within the pelvis, bilaterally. Nonobstructive bowel gas pattern. No free air. Significant degenerative changes without acute osseous abnormality. IMPRESSION: Relatively stable large staghorn calculus associated with the left kidney with resulting atrophy of the left kidney. New 8 mm calcification overlying the left aspect of the sacrum. This is indeterminate. Although this may simply relate to a phlebolith or overlying enteric contents, a left-sided ureterolith would be an additional consideration. This could be further evaluated with CT, as clinically indicated. Tiny 2 mm right renal calculus. Significant degenerative changes within the osseous structures without acute osseous abnormality. Dictated by: Dictated on workstation # [id number]
== END ==
LOC: RAD 15:06
PROVIDERS: ATTEND Urology
DX: N20.0 Calculus of kidney (principal); M81.0 Age-related osteoporosis without current pathological fracture; Z85.46 Personal history of malignant neoplasm of prostate; Z85.51 Personal history of malignant neoplasm of bladder
CPT/HCPCS: 36415; 74018; 80053; 81000; 84153; 84403; 85027; 87088

== ENCOUNTER → 2020-12-06 | Outpatient (CLI) | payer MEDICARE ==
--- NOTE | 2020-12-06 09:00 | Diagnostic Imaging Report ---
PROCEDURE: CT abdomen and pelvis without contrast. TECHNIQUE: Multiple contiguous axial images were obtained through the abdomen and pelvis without the use of intravenous contrast. Auto Exposure Controls were utilized during the CT exam to meet ALARA standards for radiation dose reduction. INDICATION: Bilateral lower quadrant pain, back pain The previous CT abdomen/pelvis exam of 12/02/2018 noted a punctate nonobstructive right renal calculus as well as atrophy of the left kidney with staghorn calculus formation on the left. Those findings are again evident on this study and do not appear to have changed significantly. There is no evidence for urolithiasis and the kidneys do not appear to be obstructed. The cysts arising from both kidneys seen previously are again visualized. There is no solid mass identified, however. The previous study also identified mild dilatation of the infrarenal abdominal aorta. The aorta measured 2.8 x 2.9 cm. On this study, the aorta is slightly larger and now measures 3.0 x 3.2 cm. There is no acute abnormality of the abdomen or pelvis identified. The liver, spleen, pancreas, adrenals, gallbladder and inferior vena cava are unremarkable. The stomach is not well-distended and difficult to assess. There is diverticulosis of the sigmoid colon but there is no sign of acute diverticulitis. The urinary bladder and prostate gland are grossly unremarkable. Metallic clips are evident within the prostate gland. The previous study did show 1.2 x 1.4 cm lobulated nodular density in the right lung base. That finding is not included on this exam. The lungs are otherwise generally clear. The bone windows show no sign of a fracture or of a destructive lesion. IMPRESSION: 1. The nonobstructive calculus within the right kidney and the atrophy of the left kidney with staghorn calculus formation seen previously are again evident and no different. There is no evidence for urolithiasis and the kidneys do not appear to be obstructed. 2. There is no acute abnormality of the abdomen or pelvis noted otherwise. 3. 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 4. The lobulated nodular density in the right lung base seen on the prior study was not included on this exam. If further imaging is desired, then CT chest would be recommended. Dictated by: Dictated on workstation # [id number]
== END ==
LOC: RAD 08:15
PROVIDERS: ATTEND Urology
DX: N20.0 Calculus of kidney (principal); I71.4 Abdominal aortic aneurysm, without rupture; R91.8 Other nonspecific abnormal finding of lung field
CPT/HCPCS: 74176